=== PATIENT | female | born 2000 | race Caucasian/White ===

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

== ENCOUNTER 2021-06-09 22:38 | Emergency (ER) | payer MEDICAID ==
[~2021-06-09] VITALS: Ht 157.5 cm; Wt 56.8 kg
[~2021-06-09 22:38] MED LIST changes: +PREDNISONE20 MG PO
[2021-06-09 22:51] VITALS: TEMP 98
[2021-06-09] MEDS ORDERED: FLAGYL500 MG PO (23:44)
[2021-06-09 23:49] VITALS: BP 121/83; PULSE 97
== END 2021-06-09 23:49 | disposition home or self-care (01) ==
LOC: COL.ER 22:38
DX: N76.0 Acute vaginitis (principal); A64 Unspecified sexually transmitted disease; A59.01 Trichomonal vulvovaginitis
CPT/HCPCS: J0696

== ENCOUNTER 2021-09-20 16:49 | Emergency (ER) | payer MEDICAID ==
[~2021-09-20] VITALS: Ht 157.5 cm; Wt 61.4 kg
[~2021-09-20 16:49] MED LIST changes: +FLAGYL500 MG PO
[2021-09-20 16:53] VITALS: TEMP 97.6
[2021-09-20 19:25] LABS: COLLECTION METHOD CLEAN CATCH
[2021-09-20 19:35] LABS: PH 6 (5-8); SQUAMOUS EPITHELIAL 0-2 /hpf (0-10); URINE APPEARANCE Clear (CLEAR/HAZY); URINE BACTERIA None Seen (NONE SEEN); URINE BILIRUBIN Negative (NEGATIVE); URINE BLOOD Negative (NEGATIVE); URINE COLOR Yellow (YELLOW); URINE GLUCOSE Negative (NEGATIVE); URINE KETONE Negative (NEGATIVE); URINE LEUKOCYTE ESTERASE Negative (NEGATIVE); URINE NITRATE Negative (NEGATIVE); URINE PROTEIN(semi-quant) Negative (NEGATIVE); URINE RBC 0-2 /hpf (0-2); URINE UROBILINOGEN Negative (NEGATIVE)
[2021-09-20 20:45] VITALS: BP 108/63; PULSE 88
== END 2021-09-20 20:45 | disposition home or self-care (01) ==
LOC: COL.ER 16:49
PROVIDERS: Nurse Practitioner Primary Care
DX: N89.8 Other specified noninflammatory disorders of vagina (principal); F17.210 Nicotine dependence, cigarettes, uncomplicated; Z32.02 Encounter for pregnancy test, result negative

== ENCOUNTER 2021-11-05 23:05 | Emergency (ER) | payer MEDICAID ==
[2021-11-05 23:31] VITALS: TEMP 98.6
[2021-11-05 23:39] LABS: COLLECTION METHOD CLEAN CATCH
[2021-11-05 23:53] LABS: MUCOUS Present (NOT PRESENT); PH 6 (5-8); SQUAMOUS EPITHELIAL 0-2 /hpf (0-10); URINE APPEARANCE Hazy (CLEAR/HAZY); URINE BACTERIA Rare /hpf (NONE SEEN); URINE BILIRUBIN Negative (NEGATIVE); URINE BLOOD Negative (NEGATIVE); URINE COLOR Yellow (YELLOW); URINE GLUCOSE Negative (NEGATIVE); URINE KETONE Negative (NEGATIVE); URINE LEUKOCYTE ESTERASE 3+ (NEGATIVE); URINE NITRATE Positive (NEGATIVE); URINE PROTEIN(semi-quant) Negative (NEGATIVE); URINE UROBILINOGEN Negative (NEGATIVE)
[2021-11-06 00:50] VITALS: BP 125/79; PULSE 113
[2021-11-07] MEDS ORDERED: MACROBID 1100 MG/CAP PO (07:51)
== END 2021-11-06 00:50 | disposition home or self-care (01) ==
LOC: COL.ER 23:05
PROVIDERS: Nurse Practitioner
DX: A59.01 Trichomonal vulvovaginitis (principal); N39.0 Urinary tract infection, site not specified; F17.210 Nicotine dependence, cigarettes, uncomplicated
CPT/HCPCS: J0696

== ENCOUNTER 2022-04-27 01:56 | Emergency (ER) | payer MEDICAID ==
[~2022-04-27] VITALS: Ht 157.5 cm; Wt 56.8 kg
[2022-04-27 02:03] VITALS: TEMP 97.6
[2022-04-27 03:49] LABS: BASO # 0.1 K/mm3 (0.0-0.2); BASO % 0.6 % (0.0-2.0); EOS # 0.3 K/mm3 (0.0-0.7); EOS % 2.5 % (0.0-4.0); GRAN # 5.5 K/mm3 (1.4-6.5); GRAN % 56.2 % (42.2-75.2); HEMATOCRIT 38.9 % (35.0-45.0); LYMPH # 3.5 K/mm3 (1.2-3.4); LYMPH % 35.4 % (20.0-51.0); MEAN CELL VOLUME 85 fl (80.0-95.0); MEAN CORPUSCULAR HEMOGLOBIN 28 pg (26-32); MEAN CORPUSCULAR HGB CONC 33 g/dl (33.0-37.0); MEAN PLATELET VOLUME 10.3 fl (7.4-10.4); MONO # 0.5 K/mm3 (0.1-0.6); MONO % 4.9 % (1.7-9.3); PLATELET COUNT 255 K/mm3 (130-400); RED BLOOD COUNT 4.57 M/mm3 (4.10-5.30); REDCELL DISTRIBUTION WIDTH-CV 12.7 % (11.5-14.5)
[2022-04-27 04:02] LABS: ALBUMIN 3.7 gm/dL (3.5-5.0); BILIRUBIN,TOTAL 0.3 mg/dL (0.2-1.2); CALCIUM 8.9 mg/dL (8.4-10.2); CREATININE, serum 0.71 mg/dL (0.57-1.11); POTASSIUM 3.9 mmol/L (3.5-4.5)
[2022-04-27 04:57] VITALS: BP 126/86; PULSE 91
== END 2022-04-27 05:03 | disposition home or self-care (01) ==
LOC: COL.ER 01:56
PROVIDERS: Personal Emergency Response Attendant
DX: N94.89 Other specified conditions associated with female genital organs and menstrual cycle (principal); R10.11 Right upper quadrant pain; F17.200 Nicotine dependence, unspecified, uncomplicated; Z28.310 Unvaccinated for COVID-19
CPT/HCPCS: J2270; J2405; J7030; Q9967

== ENCOUNTER 2022-05-15 11:50 | Emergency (ER) | payer MEDICAID ==
[~2022-05-15] VITALS: Ht 157.5 cm; Wt 56.8 kg
[2022-05-15 12:48] VITALS: TEMP 97.9
[2022-05-15 12:51] VITALS: BP 115/73; PULSE 118
== END 2022-05-15 12:54 | disposition home or self-care (01) ==
LOC: COL.ER 11:50
DX: R10.11 Right upper quadrant pain (principal); R00.0 Tachycardia, unspecified; F17.210 Nicotine dependence, cigarettes, uncomplicated; Z28.310 Unvaccinated for COVID-19

== ENCOUNTER 2023-08-16 17:35 | Emergency (ER) | payer MEDICAID ==
[~2023-08-16] VITALS: Ht 157.5 cm; Wt 61.4 kg
[~2023-08-16 17:35] MED LIST changes: +BACTRIM DS 8001 TAB PO; +CEFTIN 250250 MG/TAB PO; +CEFTIN500 MG PO; +CIPRO 250MG TA250 MG PO
[2023-08-16 17:54] VITALS: TEMP 98.9
[2023-08-16 19:39] LABS: COLLECTION METHOD CLEAN CATCH
[2023-08-16 19:50] LABS: URINE APPEARANCE Clear (CLEAR/HAZY); URINE BACTERIA Rare /hpf (NONE SEEN); URINE BLOOD TRACE-INTACT (NEGATIVE); URINE COLOR Yellow (YELLOW); URINE GLUCOSE Negative (NEGATIVE); URINE KETONE Negative (NEGATIVE); URINE NITRATE Negative (NEGATIVE); URINE PROTEIN(semi-quant) Negative (NEGATIVE); URINE UROBILINOGEN 0.2 E.U/dL (0.2-1.0)
[2023-08-16] MEDS ORDERED: VOLTAREN 75 DR75 MG PO (20:15)
[2023-08-16] MEDS ORDERED: CLOBEX 118 ML118 M1 TP (20:15)
[2023-08-16 20:23] VITALS: BP 124/83; PULSE 122
== END 2023-08-16 20:34 | disposition home or self-care (01) ==
LOC: COL.ER 17:35
PROVIDERS: Family Medicine
DX: L40.9 Psoriasis, unspecified (principal); R10.9 Unspecified abdominal pain; T49.4X5A Adverse effect of keratolytics, keratoplastics, and other hair treatment drugs and preparations, initial encounter; F17.200 Nicotine dependence, unspecified, uncomplicated
CPT/HCPCS: J1100

== ENCOUNTER 2023-08-26 16:24 | Emergency (ER) | payer MEDICAID ==
[~2023-08-26] VITALS: Ht 157.5 cm; Wt 61.4 kg
[~2023-08-26 16:24] MED LIST changes: +CLOBEX 118 ML118 M1 TP; +VOLTAREN 75 DR75 MG PO
[2023-08-26 16:25] VITALS: TEMP 98.3
[2023-08-26] MEDS ORDERED: CLEOCIN HCL300 MG PO (17:15)
[2023-08-26] MEDS ORDERED: BACTROBAN 22GM22 GM TOP (17:15)
[2023-08-26 17:24] VITALS: BP 136/91; PULSE 109
== END 2023-08-26 17:24 | disposition home or self-care (01) ==
LOC: COL.ER 16:24
DX: L01.02 Bockhart's impetigo (principal); F17.210 Nicotine dependence, cigarettes, uncomplicated